=== PATIENT | female | born 1980 | race Caucasian/White ===

== ENCOUNTER 2018-07-19 17:59 | Emergency (ER) | payer OTHER, SELFPAY ==
[2018-07-19 17:48] VITALS: BP 154/110; PULSE 98; RESP 18; TEMP 37.1; O2SAT 98
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
[2018-07-19 18:32] LABS: Abs Immature Grans 0.05 k/cumm (0.0-0.09); Absolute Basophil Count 0.04 k/cumm (0.0-0.2); Absolute Eosinophil Count 0.03 k/cumm (0.0-0.7); Absolute Lymphocyte Count 2.16 k/cumm (1.2-3.4); Absolute Monocyte Count 0.78 k/cumm (0.11-0.7); Basophils % 0.3; Eosinophils % 0.2; HCT 39.2 % (36.0-46.0); Immature Grans % 0.4; Lymphocytes % 17.1; Mean Corp. HGB Concentration 33.2 g/dL (32.0-36.0); Mean Corpuscular Hemoglobin 28.3 pg (27.0-33.0); Mean Corpuscular Volume 85.4 fL (80-95); Mean Platelet Volume 10.3 fL (8.0-11.0); Monocytes % 6.2; Neutrophils % 75.8; Platelet Count 323 x1000/uL (130-400); RBC 4.59 m/cumm (4.00-5.20); RBC Distribution Width 13.5 % (11.7-14.6); White Blood Cell Count 12.61 k/cumm (4.4-10.8)
[2018-07-19 18:34] LABS: Absolute Neutrophil Count 9.56 k/cumm (1.2-6.7)
[2018-07-19 18:41] LABS: ALT 57 U/L (12-78); AST 30 U/L (15-37); Albumin 4.2 g/dL (3.4-5.0); Alkaline Phosphatase 91 U/L (46-116); Anion Gap 11.1 mmol/L (3-11); BUN 17 mg/dL (7-18); Bilirubin, Total 0.3 mg/dL (0.2-1.0); CO2 26.9 mmol/L (21.0-32.0); CREATININE 0.84 mg/dL (0.55-1.02); Calcium 8.9 mg/dL (8.5-10.1); Chloride 102 mmol/L (98-107); Glucose 94 mg/dL (70-100); Potassium 3.6 mmol/L (3.5-5.1); Sodium 140 mmol/L (136-145); Total Protein 8.2 g/dL (6.4-8.2)
[2018-07-19 18:44] LABS: INR 0.9 (0.9-1.1); PTT Activated 24.1 sec (21.0-31.4)
[2018-07-19] MEDS: Omnipaque 350 MG/ML 100 ML BTL IJ (18:50)
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
[2018-07-19 19:35] LABS: Bilirubin Negative (Negative); Blood Moderate (Negative); Clarity Clear; Glucose Negative (Negative); Ketones Negative (Negative); Leukocyte Esterase Negative (Negative); Nitrite Negative (Negative); Specific Gravity 1.015 (1.005-1.025); Urobilinogen 0.2 EU/dL (Up TO 0.2)
[2018-07-19] MEDS: Ketorolac 30 MG/ML VIAL IVP (19:38)
[2018-07-19 19:56] LABS: Epithelial Cells Many HPF (Negative); WBC 0-2 HPF (0-5)
[2018-07-19 19:57] LABS: Bacteria Rare HPF (Negative); C & S Indicated? No/Sq. Contamination; Casts Negative LPF (Negative); Crystals Negative HPF (Negative); Mucus Negative (Negative); Other Cells Rare Renal (Negative)
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
[2018-07-19 20:27] VITALS: BP 144/100; PULSE 98; RESP 16; TEMP 37.1; O2SAT 96
== END 2018-07-19 20:26 | disposition home or self-care (01) ==
PROVIDERS: Emergency Provider Nurse Practitioner Family; PCP Nurse Practitioner Family
DX: R07.89 Other chest pain (principal); R10.9 Unspecified abdominal pain; V43.52XA Car driver injured in collision with other type car in traffic accident, initial encounter
CPT/HCPCS: 74177; 80053; 86850; 86900; 86901; 96374; 99285; 71260; 81003; 81015; 85025; 85610; 85730; 99284; J1885; J3490